=== PATIENT | male | born 1955 | race Caucasian/White ===

== ENCOUNTER 2023-10-19 18:45 | Inpatient (IN) | payer MEDICARE ==
--- NOTE | 2023-10-19 19:58 | ED ---
General Adult HPI - General Chief complaint: Neuro Symptoms/Deficit Stated complaint: Headache/High blood pressure Time Seen by Provider: 10/19/23 19:03 Source: patient Mode of arrival: ambulatory - History of Present Illness Initial comments: Dictation was produced using [employer] dictation software. please excuse any grammatical, word or spelling errors. Chief Complaint: 68-year-old male presents to the ER after leaving AGAINST MEDICAL ADVICE from [facility] for strokelike symptoms that occurred 3 days ago History of Present Illness: Patient 68-year-old male he was admitted left AGAINST MEDICAL ADVICE from [facility]. On Friday he had episode over the phone with his son where he had garbled and nonsensical speech. He was seen at the emergency department there diagnosed with CVA. He was admitted to the hospital and was there over the weekend. Patient also had elevated blood pressure. They were upset with the care they received there and decided to dale ve AGAINST MEDICAL ADVICE because they felt like there was no progression being made. Patient's symptoms had resolved. Son decided to bring patient here for further care. Patient denies any complaints at this time. History of present illness obtained from son and patient. Patient has multiple comorbidities including A-fib and is currently on Coumadin. The ROS documented in this emergency department record has been reviewed and confirmed by me. Those systems with pertinent positive or negative responses have been documented in the HPI. All other systems are other negative and/or noncontributory. - Related Data Home Medications Medication Instructions Recorded Confirmed Digoxin [Digitek] 125 mcg PO DAILY 10/19/23 10/19/23 Losartan Potassium 100 mg PO DAILY 10/19/23 10/19/23 Metoprolol Tartrate [Lopressor] 100 mg PO BID 10/19/23 10/19/23 Pantoprazole [Protonix] 40 mg PO BID 10/19/23 10/19/23 Simvastatin [Zocor] 60 mg PO DAILY 10/19/23 10/19/23 Warfarin [Coumadin] 5 mg PO SUTUTHSA@0900 10/19/23 10/19/23 Warfarin [Coumadin] 7.5 mg PO MOWEFR@0900 10/19/23 10/19/23 amLODIPine [Norvasc] 5 mg PO DIRECTED 10/19/23 10/19/23 glipiZIDE [glipiZIDE ER] 10 mg PO BID 10/19/23 10/19/23 metFORMIN HCL 1,000 mg PO HS 10/19/23 10/19/23 metFORMIN HCL 1,500 mg PO DAILY 10/19/23 10/19/23 Allergies Allergy/AdvReac Type Severity Reaction Status Date / Time No Known Allergies Allergy Verified 10/19/23 19:50 Review of Systems ROS Statement: Those systems with pertinent positive or pertinent negative responses have been documented in the HPI. ROS Other: All systems not noted in ROS Statement are negative. Past Medical History Past Medical History: Atrial Fibrillation, Diabetes Mellitus, Hypertension Additional Past Medical History / Comment(s): ablasion 20 yrs Past Surgical History: Joint Replacement Additional Past Surgical History / Comment(s): Hip replacement Smoking Status: Current every day smoker Past Alcohol Use History: Rare Past Drug Use History: None Reported General Exam - General Exam Comments Initial Comments: PHYSICAL EXAM: General Impression: Alert and oriented x3, not in acute distress HEENT: Normocephalic atraumatic, extra-ocular movements intact, pupils equal and reactive to light bilaterally, mucous membranes moist. Cardiovascular: Heart regular rate and rhythm Chest: Able to complete full sentences, no retractions, no tachypnea Abdomen: abdomen soft, non-tender, non-distended, no organomegaly Musculoskeletal: Pulses present and equal in all extremities, no peripheral edema Motor: no focal deficits noted Neurological: CN II-XII grossly intact, no focal motor or sensory deficits noted Skin: Intact with no visualized rashes Psych: Normal affect and mood Course Vital Signs 10/19/23 10/19/23 18:54 20:24 Temperature 98.6 F 98.6 F Pulse Rate 101 H 92 Respiratory 20 17 Rate Blood Pressure 193/114 178/129 O2 Sat by Pulse 98 97 Oximetry Medical Decision Making - Medical Decision Making Was pt. sent in by a medical professional or institution (, PA, CENTRIFUGAL MACHINE TENDER, urgent care, hospital, or penitentiary...) When possible be specific @ -Left AMA from outside hospital Did you speak to anyone other than the patient for history (EMS, parent, family, police, friend...)? What history was obtained from this source @ -Son as described above. Son brought patient here for second opinion Did you review nursing and triage notes (agree or disagree)? Why? @ -I reviewed and agree with nursing and triage notes Were old charts reviewed (outside hosp., previous admission, EMS record, old EKG, old radiological studies, urgent care reports/EKG's, penitentiary records)? Report findings @ -Documentation from [facility] was requested and received via fax. Admission HPI note was reviewed showing that patient came in for possible stroke. He had CT perfusion imaging results that were interpreted as likely artifactual. He did receive an MRI which did not show any acute processes. He was seen by cardiology who was consulted for blood pressure management. There was no consultation note by neurology. Differential Diagnosis (chest pain, altered mental status, abdominal pain women, abdominal pain men, vaginal bleeding, musculoskeletal, weakness, fever, dyspnea, syncope, headache, dizziness, GI bleed, back pain, seizure, CVA, palpatations, mental health)? @ -Not applicable EKG interpreted by me (3pts min.). @ -None done X-rays interpreted by me (1pt min.). @ -None done CT interpreted by me (1pt min.). @ -None done U/S interpreted by me (1pt. min.). @ -None done What testing was considered but not performed or refused? (CT, X-rays, U/S, labs)? Why? @ -None What meds were considered but not given or refused? Why? @ -None Did you discuss the management of the patient with other professionals (professionals i.e. , PA, CENTRIFUGAL MACHINE TENDER, lab, RT, psych nurse, social media executive, stretching press operator, teacher, medical scientific officer, porter sample case)? Give summary @ -Case discussed with hospitalist for admission Was smoking cessation discussed for >3mins.? @ -No Was critical care preformed (if so, how long)? @ -No Were there social determinants of health that impacted care today? How? (Homelessness, low income, unemployed, alcoholism, drug addiction, transportation, low edu. Level, literacy, decrease access to med. care, [place] [facility], rehab)? @ -No Was there de-escalation of care discussed even if they declined (Discuss DNR or withdrawal of care, Hospice)? DNR status @ -No What co-morbidities impacted this encounter? (DM, HTN, Smoking, COPD, CAD, Cancer, CVA, ARF, Chemo, Hep., AIDS, mental health diagnosis, sleep apnea, morbid obesity)? @ -None Was patient admitted / discharged? Hospital course, mention meds given and route, prescriptions, significant lab abnormalities, going to OR and other pertinent info. @ -68-year-old male left AMA from [facility]. He presented there for strokelike symptoms. Vital signs are stable. Patient well-appearing at the bedside states that he feels fine. Disposition options were discussed with patient and family. It is the request that patient be admitted with consultation to neurology. Fax documentation from [facility] was placed in patient's chart. Undiagnosed new problem with uncertain prognosis? @ -No Drug Therapy requiring intensive monitoring for toxicity (Heparin, Nitro, Insulin, Cardizem)? @ -No Were any procedures done? @ -No Diagnosis/symptom? Acute, or Chronic, or Acute on Chronic? Uncomplicated (without systemic symptoms) or Complicated (systemic symptoms)? @ -CVA Side effects of treatment? @ -No Exacerbation, Progression, or Severe Exacerbation? @ -No Poses a threat to life or bodily function? How? (Chest pain, USA, NV, pneumonia, PE, COPD, DKA, ARF, appy, cholecystitis, CVA, Diverticulitis, Homicidal, Suicidal, threat to staff... and all critical care pts) @ -yes - Lab Data Result diagrams: 10/19/23 20:05 10/19/23 20:05 Lab Results 10/19/23 10/19/23 Range/Units 20:05 20:05 WBC 12.9 H (3.8-10.6) k/uL RBC 4.84 (4.30-5.90) m/uL Hgb 16.5 (13.0-17.5) gm/dL Hct 43.6 (39.0-53.0) % MCV 90.1 (80.0-100.0) fL MCH 34.0 (25.0-35.0) pg MCHC 37.8 H (31.0-37.0) g/dL RDW 13.4 (11.5-15.5) % Plt Count 265 (150-450) k/uL MPV 8.8 Neutrophils % 67 % Lymphocytes % 20 % Monocytes % 8 % Eosinophils % 4 % Basophils % 1 % Neutrophils # 8.6 H (1.3-7.7) k/uL Lymphocytes # 2.5 (1.0-4.8) k/uL Monocytes # 1.0 (0-1.0) k/uL Eosinophils # 0.5 (0-0.7) k/uL Basophils # 0.1 (0-0.2) k/uL Sodium 139 (137-145) mmol/L Potassium 4.3 (3.5-5.1) mmol/L Chloride 110 H (98-107) mmol/L Carbon Dioxide 20 L (22-30) mmol/L Anion Gap 9 mmol/L BUN 16 (9-20) mg/dL Creatinine 0.87 (0.66-1.25) mg/dL Est GFR (CKD-EPI)AfAm >90 (>60 ml/min/1.73 sqM) Est GFR (CKD-EPI)NonAf >90 (>60 ml/min/1.73 sqM) Glucose 230 H (74-99) mg/dL Calcium 9.2 (8.4-10.2) mg/dL Disposition Clinical Impression: Stroke-like symptoms Disposition: ADMITTED IP TO THIS [facility] Condition: Fair Referrals: Eric Banda MD [Primary Care Provider] - 1-2 days Decision Time: 19:58
[2023-10-19 20:27] LABS: Basophils # (A) 0.1 k/uL (0-0.2); Basophils % (A) 1 %; Eosinophils # (A) 0.5 k/uL (0-0.7); Eosinophils % (A) 4 %; HCT 43.6 % (39.0-53.0); HGB 16.5 gm/dL (13.0-17.5); Lymphocytes # (A) 2.5 k/uL (1.0-4.8); Lymphocytes % (A) 20 %; MCHC 37.8 g/dL (31.0-37.0); MCV 90.1 fL (80.0-100.0); Mean Platelet Volume 8.8; Monocytes % (A) 8 %; Neutrophils # (A) 8.6 k/uL (1.3-7.7); Neutrophils % (A) 67 %; Platelet Count 265 k/uL (150-450); RBC 4.84 m/uL (4.30-5.90); RDW 13.4 % (11.5-15.5); WBC 12.9 k/uL (3.8-10.6)
[2023-10-19] MEDS ORDERED: NALOXONE 0.4 MG/ML 1 ML VIAL IV PRN (20:39)
[2023-10-19 20:43] LABS: African American GFR (CKD) >90 (>60 ml/min/1.73 sqM); Anion Gap 9 mmol/L; Blood Urea Nitrogen 16 mg/dL (9-20); Calcium 9.2 mg/dL (8.4-10.2); Carbon Dioxide 20 mmol/L (22-30); Chloride 110 mmol/L (98-107); Glucose 230 mg/dL (74-99); Non-African American GFR(CKD) >90 (>60 ml/min/1.73 sqM); Potassium 4.3 mmol/L (3.5-5.1); Sodium 139 mmol/L (137-145)
[2023-10-19] MEDS: SODIUM CHLORIDE 0.9% 1,000 ML IV SCH (21:32)
[2023-10-19 23:48] LABS: INR 1.6 (<1.2); Partial Thromboplastin Time 30.6 sec (22.0-30.0); Prothrombin Time 16.2 sec (10.0-12.5)
[2023-10-20 06:41] LABS: Glucose,Whole Blood 166 mg/dL (70-110)
[2023-10-20] MEDS ORDERED: DEXTROSE 50% SYRINGE 50 ML IVP PRN ×2 (06:45)
[2023-10-20] MEDS: INSULIN ASPART (NovoLOG) 100 UNIT/ML VIAL SQ SCH (06:53)
[2023-10-20] MEDS: PANTOPRAZOLE 40 MG TABLET PO SCH (06:53)
[2023-10-20 07:05] LABS: INR 1.4 (<1.2); Prothrombin Time 14.7 sec (10.0-12.5)
[2023-10-20] MEDS: amLODIPine 5 MG TAB PO SCH (09:05)
[2023-10-20] MEDS: DIGOXIN 125 MCG TAB PO SCH (09:05)
[2023-10-20] MEDS: LOSARTAN 50 MG TAB PO SCH (09:05)
[2023-10-20] MEDS: ATORVASTATIN 10 MG TAB PO SCH (09:05)
[2023-10-20] MEDS: METOPROLOL TARTRATE 50 MG TAB PO SCH (09:05)
[2023-10-20 11:20] LABS: Glucose,Whole Blood 307 mg/dL (70-110)
--- NOTE | 2023-10-20 12:35 | P.HPIM ---
History of Present Illness 68-year-old male came in after he had speech abnormality which lasted only for few minutes. Patient was at [facility] where he had a CT of the head and CT angio of the head and neck which were negative except for some occlusion of the vertebral artery. Patient blood sugars are high because he did not get his blood sugar medications which is metformin and glipizide which he takes at home. Patient's INR is 1.4 patient did not take his Coumadin for the last 2 days. Before that patient INR was supratherapeutic at 3.1 patient has valvular A-fib because of which patient is on Coumadin. Patient is in A-fib patient probably has chronic or persistent atrial fibrillation although rate controlled and neurology is recommending Lovenox to bridge. Patient denies any fever chills patient does not have any symptoms of stroke at this time no weakness no tingling numbness. REVIEW OF SYSTEMS: CONSTITUTIONAL: No fever, no malaise, no fatigue. HEENT: No recent visual problems or hearing problems. Denied any sore throat. CARDIOVASCULAR: No chest pain, orthopnea, PND, no palpitations, no syncope. PULMONARY: No shortness of breath, no cough, no hemoptysis. GASTROINTESTINAL: No diarrhea, no nausea, no vomiting, no abdominal pain. NEUROLOGICAL: No headaches, no weakness, no numbness. HEMATOLOGICAL: Denies any bleeding or petechiae. GENITOURINARY: Denies any burning micturition, frequency, or urgency. MUSCULOSKELETAL/RHEUMATOLOGICAL: Denies any joint pain, swelling, or any muscle pain. ENDOCRINE: Denies any polyuria or polydipsia. The rest of the 14-point review of systems is negative. PHYSICAL EXAMINATION: GENERAL: The patient is alert and oriented x3, not in any acute distress. Well developed, well nourished. HEENT: Pupils are round and equally reacting to light. EOMI. No scleral icterus. No conjunctival pallor. Normocephalic, atraumatic. No pharyngeal erythema. No thyromegaly. CARDIOVASCULAR: S1 and S2 present. No murmurs, rubs, or gallops. PULMONARY: Chest is clear to auscultation, no wheezing or crackles. ABDOMEN: Soft, nontender, nondistended, normoactive bowel sounds. No palpable organomegaly. MUSCULOSKELETAL: No joint swelling or deformity. EXTREMITIES: No cyanosis, clubbing, or pedal edema. NEUROLOGICAL: Gross neurological examination did not reveal any focal deficits. SKIN: No rashes. Assessment and plan -Possible transient ischemic attack: Patient will undergo echocardiogram to rule out any ventricular thrombus patient will be resumed on Coumadin with INR checks tomorrow patient will be bridged as recommended by neurology. Will obtain a lipid panel hemoglobin A1c echocardiogram neurology is evaluating the patient. Neurology is also recommending aspirin 81 mg -Hypertension: Patient blood pressure slightly high now we will just monitor before we increase the dose of antihypertensive medication patient is on amlodipine and losartan which were restarted -Hyperlipidemia: Lipid panel will be obtained patient is not on statin at home -Valvular A-fib for which patient is on Coumadin which will be resumed and patient is on beta-henrique which will be resumed, patient will be bridged with Lovenox -Nicotine use: Counseling was provided DVT prophylaxis: Patient is on anticoagulation as mentioned above Past Medical History Past Medical History: Atrial Fibrillation, Diabetes Mellitus, Hypertension Additional Past Medical History / Comment(s): ablasion 20 yrs History of Any Multi-Drug Resistant Organisms: None Reported Past Surgical History: Joint Replacement Additional Past Surgical History / Comment(s): Hip replacement Smoking Status: Current every day smoker Past Alcohol Use History: Rare Past Drug Use History: None Reported Medications and Allergies Home Medications Medication Instructions Recorded Confirmed Type Digoxin [Digitek] 125 mcg PO DAILY 10/19/23 10/19/23 History Losartan Potassium 100 mg PO DAILY 10/19/23 10/19/23 History Metoprolol Tartrate [Lopressor] 100 mg PO BID 10/19/23 10/19/23 History Pantoprazole [Protonix] 40 mg PO BID 10/19/23 10/19/23 History Simvastatin [Zocor] 60 mg PO DAILY 10/19/23 10/19/23 History Warfarin [Coumadin] 5 mg PO SUTUTHSA@0900 10/19/23 10/19/23 History Warfarin [Coumadin] 7.5 mg PO MOWEFR@0900 10/19/23 10/19/23 History amLODIPine [Norvasc] 5 mg PO DIRECTED 10/19/23 10/19/23 History glipiZIDE [glipiZIDE ER] 10 mg PO BID 10/19/23 10/19/23 History metFORMIN HCL 1,000 mg PO HS 10/19/23 10/19/23 History metFORMIN HCL 1,500 mg PO DAILY 10/19/23 10/19/23 History Allergies Allergy/AdvReac Type Severity Reaction Status Date / Time No Known Allergies Allergy Verified 10/19/23 19:50 Physical Exam Vitals: Vital Signs Temp Pulse Pulse Resp BP BP Pulse Ox 10/20/23 08:00 98 F 77 16 191/91 100 10/20/23 04:00 74 18 140/90 97 10/20/23 02:00 70 10/19/23 21:12 98.2 F 84 18 190/120 98 10/19/23 20:24 98.6 F 92 17 178/129 97 10/19/23 18:54 98.6 F 101 H 20 193/114 98 Intake and Output 10/19/23 10/20/23 10/20/23 22:59 06:59 14:59 Intake Total 240 Balance 240 Intake: Oral 240 Other: # Voids 2 Weight 113.398 kg Results CBC & Chem 7: 10/19/23 20:05 10/19/23 20:05 Labs: Abnormal Lab Results - Last 24 Hours (Table) 10/19/23 10/19/23 10/19/23 Range/Units 20:05 20:05 23:28 WBC 12.9 H (3.8-10.6) k/uL MCHC 37.8 H (31.0-37.0) g/dL Neutrophils # 8.6 H (1.3-7.7) k/uL PT 16.2 H (10.0-12.5) sec INR 1.6 H (<1.2) APTT 30.6 H (22.0-30.0) sec Chloride 110 H (98-107) mmol/L Carbon Dioxide 20 L (22-30) mmol/L Glucose 230 H (74-99) mg/dL POC Glucose (mg/dL) (70-110) mg/dL 10/20/23 10/20/23 10/20/23 Range/Units 06:37 06:38 11:16 WBC (3.8-10.6) k/uL MCHC (31.0-37.0) g/dL Neutrophils # (1.3-7.7) k/uL PT 14.7 H (10.0-12.5) sec INR 1.4 H (<1.2) APTT (22.0-30.0) sec Chloride (98-107) mmol/L Carbon Dioxide (22-30) mmol/L Glucose (74-99) mg/dL POC Glucose (mg/dL) 166 H 307 H (70-110) mg/dL Thrombosis Risk Factor Assmnt - Choose All That Apply Each Factor Represents 1 point: Swollen legs (current) Other Risk Factors: Yes Each Risk Factor Represents 2 Points: Age 61-74 years Other congenital or acquired thrombophilia - If yes, enter type in comment: No Thrombosis Risk Factor Assessment Total Risk Factor Score: 3 Thrombosis Risk Factor Assessment Level: Moderate Risk
[2023-10-20] MEDS: metFORMIN 500 MG TAB PO SCH ×2 (12:36→20:55)
[2023-10-20] MEDS: ASPIRIN 81 MG PO SCH (12:37)
--- NOTE | 2023-10-20 14:05 | US ---
EXAMINATION TYPE: US carotid duplex BILAT DATE OF EXAM: 10/20/2023 COMPARISON: NONE CLINICAL INDICATION: Male, 68 years old with history of TIA; TIA TECHNIQUE: Carotid duplex ultrasound examination. Indirect Doppler criteria was utilized. FINDINGS: EXAM MEASUREMENTS: RIGHT: Peak Systolic Velocity (PSV) cm/sec ----- Right CCA: 66.3 ----- Right ICA: 69.5 ----- Right ECA: 72.8 ICA/CCA ratio: 1.04 RIGHT: End Diastole cm/sec ----- Right CCA: 18.8 ----- Right ICA: 17.5 ----- Right ECA: 11.7 LEFT: Peak Systolic Velocity (PSV) cm/sec ----- Left CCA: 82.5 ----- Left ICA: 72.1 ----- Left ECA: 63 ICA/CCA ratio: 0.87 LEFT: End Diastole cm/sec ----- Left CCA: 10.4 ----- Left ICA: 20.1 ----- Left ECA: 3.25 VERTEBRALS (direction of flow): Right Vertebral: Antegrade Left Vertebral: Antegrade Rhythm: Normal OUTBOUND SALES CONSULTANT NOTES: Mild atherosclerotic changes No significant stenosis seen IMPRESSION: Mild atherosclerotic changes with no significant hemodynamic stenosis. Criteria for Assigning % of Stenosis / Diameter reduction (Estimation based on the indirect measurements of the internal carotid artery velocities (ICA PSV). 1. Normal (no stenosis)=ICA PSV < 125 cm/s: ratio < 2.0: ICA EDV<40 cm/s. 2. Less than 50% stenosis=ICA PSV < 125 cm/s: ratio < 2.0: ICA EDV<40 cm/s. 3. 50 to 69% stenosis=ICA PSV of 125 to 230 cm/s: ration 2.0 ? 4.0: ICA EDV 40-100 cm/s. 4. Greater than 70% stenosis to near occlusion= ICA PSV > 230 cm/s: ratio > 4.0: ICA EDV > 100 cm/s. 5. Near occlusion= ICA PSV velocities may be low or undetectable: variable ratio and ICA EDV. 6. Total occlusion=unable to detect flow.
[2023-10-20 16:23] LABS: Glucose,Whole Blood 274 mg/dL (70-110)
[2023-10-20] MEDS: ENOXAPARIN 100 MG/ML SYRINGE SQ SCH (16:30)
[2023-10-20] MEDS: glipiZIDE 10 MG TAB PO SCH (16:30)
[2023-10-20] MEDS: WARFARIN 7.5 MG TAB PO ONE (16:30)
[2023-10-20 20:20] LABS: Glucose,Whole Blood 315 mg/dL (70-110)
[2023-10-20] MEDS: SENNOSIDES-DOCUSATE SODIUM 1 EACH TAB PO PRN (20:57)
[2023-10-21 06:07] LABS: Glucose,Whole Blood 150 mg/dL (70-110)
[2023-10-21 08:25] VITALS: RESP 16; TEMP 97.6
--- NOTE | 2023-10-21 09:08 | P.CNNES ---
History of Present Illness Consult date: 10/20/23 Requesting physician: Mickey Morales Reason for Consult: stroke symptoms History of Present Illness: Patient is a 68-year-old right-handed male with history of atrial fibrillation, came to the hospital yesterday (10/19/2023) at 6:45 PM after he signed out AGAINST MEDICAL ADVICE from another hospital for stroke/TIA. Patient has presented initially to [facility] ER on 10/17/2023 when he woke up at 8 PM and the family noticed he was slurring his words and confused. Patient also was complaining of some dizziness, blurred vision and a severe headache. He was trying to tell about medication Advil/Tylenol, but only "applesauce" kept coming out from his mouth. He was talking random stuff. He also complained of sharp pain over the right frontal region, occurs once in a while lasting for a few seconds. When he was trying to swallow, felt like it was going to the wrong pipe. He states that just that day, his physician has told him to stop taking Coumadin, as his INR was high. Symptoms started before he stopped taking his Coumadin. His symptoms significantly improved and then resolved by around 11:30 AM to 12 noon that day. Overall symptoms lasted for about 4 hours altogether and then resolved. He was being worked up at another facility, but he signed out AGAINST MEDICAL ADVICE, not satisfied with the care. He went home, took a shower and came to this hospital. Patient's grandson was present at this time, who mentioned that about 4 to 5 months ago, patient had another episode, that lasted for an hour. He forgot his name, where he was going. Vital signs on arrival blood pressure 193/114, which came up to 178/129 and then 190/120. Pulse rate 101, temperature 98.6. Blood test shows WBC 12.9 normal hemoglobin, platelets. INR 1.6. Basic metabolic panel is normal. Calcium is normal. Glucose 230. Patient is currently on Coumadin, metformin, glipizide, amlodipine, simvastatin 60 mg, Protonix, metoprolol, losartan and digoxin. Patient not taking any antiplatelet medication. His INR is subtherapeutic 1.4. Patient has history of smoking 1 pack/day for 50 years, currently smokes. Patient has type 2 diabetes for last 5 years. Also has hypertension, hyperlipidemia. He drinks alcohol very occasionally. No marijuana or drug use. Review of records: Patient presented to the ER on 10/17/2023 when he woke up at 8 PM and the family noticed he was slurring his words and confused. Patient did not take his Coumadin that morning, because his physician told him to stop taking because of his INR was 3.1. He was complaining of headache. Patient has history of atrial fibrillation. Patient's CBC with WBC 10.21, hemoglobin 15. Platelets 257. INR 3.3. CK 93. Troponin 23 ng/L which is high. Calcium 8.3. UA negative. Blood alcohol level negative. CT head showed no evidence of acute intracranial hemorrhage or tendon to renal infarction. Small chronic infarct left frontal lobe white matter. Mild chronic small vessel ischemic disease. CT head with perfusion code stroke protocol showed a small area of critical hypoperfusion in the left posterior fossa is favored to be artifactual versus due to acute ischemic change. Otherwise negative CT perfusion. CTA of head and neck showed moderate to severe stenosis in the right vertebral artery region due to atherosclerotic calcification. It was reported the patient is on aspirin and statins. Patient's blood pressure was 170/100. Hepatic panel was normal. MRI of the brain without contrast 10/18/2023 revealed no acute abnormalities. 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 Multiple small, chronic lacunar infarcts. Patient was seen by analytical chemist at [facility]. Neurology was consulted, but patient signed out AGAINST MEDICAL ADVICE before he was seen by the neurologist. Review of Systems Constitutional: Denies chills, Denies fever Eyes: denies blurred vision, denies diplopia, denies pain Ears: bilateral: decreased hearing, deny: ear discharge Ears, nose, mouth and throat: Reports headache, Denies sore throat, Denies vertigo Cardiovascular: Reports dyspnea on exertion, Denies chest pain, Denies lightheadedness, Denies shortness of breath Respiratory: Denies cough, Denies excessive sputum Gastrointestinal: Denies abdominal pain, Denies diarrhea, Denies nausea, Denies vomiting Genitourinary: Denies incontinence, Denies urinary frequency Musculoskeletal: Reports low back pain, Reports neck pain, Denies myalgias Integumentary: Denies pruritus, Denies rash Neurological: Reports as per HPI Psychiatric: Reports depression, Denies anxiety Hematologic/Lymphatic: Denies easy bleeding, Denies easy bruising Past Medical History Past Medical History: Atrial Fibrillation, Diabetes Mellitus, Hypertension Additional Past Medical History / Comment(s): ablasion 20 yrs History of Any Multi-Drug Resistant Organisms: None Reported Past Surgical History: Joint Replacement Additional Past Surgical History / Comment(s): Hip replacement Smoking Status: Current every day smoker Past Alcohol Use History: Rare Past Drug Use History: None Reported Medications and Allergies Home Medications Medication Instructions Recorded Confirmed Type Digoxin [Digitek] 125 mcg PO DAILY 10/19/23 10/19/23 History Losartan Potassium 100 mg PO DAILY 10/19/23 10/19/23 History Metoprolol Tartrate [Lopressor] 100 mg PO BID 10/19/23 10/19/23 History Pantoprazole [Protonix] 40 mg PO BID 10/19/23 10/19/23 History Simvastatin [Zocor] 60 mg PO DAILY 10/19/23 10/19/23 History Warfarin [Coumadin] 5 mg PO SUTUTHSA@0900 10/19/23 10/19/23 History Warfarin [Coumadin] 7.5 mg PO MOWEFR@0900 10/19/23 10/19/23 History amLODIPine [Norvasc] 5 mg PO DIRECTED 10/19/23 10/19/23 History glipiZIDE [glipiZIDE ER] 10 mg PO BID 10/19/23 10/19/23 History metFORMIN HCL 1,000 mg PO HS 10/19/23 10/19/23 History metFORMIN HCL 1,500 mg PO DAILY 10/19/23 10/19/23 History Allergies Allergy/AdvReac Type Severity Reaction Status Date / Time No Known Allergies Allergy Verified 10/19/23 19:50 Physical Examination - Vital Signs Vital Signs: Vital Signs Temp Pulse Pulse Resp BP BP Pulse Ox 10/20/23 04:00 74 18 140/90 97 10/20/23 02:00 70 10/19/23 21:12 98.2 F 84 18 190/120 98 10/19/23 20:24 98.6 F 92 17 178/129 97 10/19/23 18:54 98.6 F 101 H 20 193/114 98 Intake and Output 10/19/23 10/20/23 10/20/23 22:59 06:59 14:59 Intake Total 240 Balance 240 Intake: Oral 240 Other: # Voids 2 Weight 113.398 kg Patient is an elderly male, in no acute distress. Patient is alert awake oriented to time place and person. Speech and language functions are normal. Patient can name and repeat very well. No aphasia or dysarthria. Attention, concentration and fund of knowledge is adequate. On cranial nerve examination, pupils are equal, round and reacting to light, visual calderon are full on confrontation, with no neglect on double simultaneous stimulation. Extraocular muscles are intact with no nystagmus. Face is symmetric, tongue protrudes to the midline. Palatal elevation and sensation normal, hearing and shoulder shrug normal, facial sensation normal. On muscle strength testing, there is no pronator drift and the strength is normal in arms and legs distally and proximally. Deep tendon reflexes are symmetric but very hypoactive all over and plantars are downgoing. Sensory to touch is equal with no neglect on double simultaneous stimulation. Cerebellar function showed no ataxia for [id number] testing. No dysdiadochokinesia. No ataxia for ifns-wi-ohma testing on either side. Tone and bulk of muscles normal. Gait deferred.. On general examination, there is no carotid bruit or murmur, S1-S2 audible. Chest is clear on consultation. Abdomen is soft nontender. No organomegaly, bowel sounds present. Peripheral pulses are present. No peripheral edema. Results - Laboratory Findings CBC and BMP: 10/19/23 20:05 10/19/23 20:05 Abnormal Lab Findings: Abnormal Labs 10/19/23 10/19/23 10/19/23 20:05 20:05 23:28 WBC 12.9 H MCHC 37.8 H Neutrophils # 8.6 H PT 16.2 H INR 1.6 H APTT 30.6 H Chloride 110 H Carbon Dioxide 20 L Glucose 230 H POC Glucose (mg/dL) 10/20/23 10/20/23 06:37 06:38 WBC MCHC Neutrophils # PT 14.7 H INR 1.4 H APTT Chloride Carbon Dioxide Glucose POC Glucose (mg/dL) 166 H Assessment and Plan Assessment: * Probable TIA manifesting with transient slurred speech, aphasia, mental confusion. Symptoms lasted for about 4 hours and resolved. Patient was on Coumadin with therapeutic INR when symptoms happened. Patient does have multiple vascular risk factors as mentioned below. * Atrial fibrillation, on Coumadin. Although his INR was therapeutic at the time of TIA, but at present patient has subtherapeutic INR * Hypertension, uncontrolled. * Diabetes * Dyslipidemia * Lumbar radiculopathy * Obesity * Tobacco use, 50 pack years Plan: Patient already had MRI of the brain performed at outside facility, which showed no acute ischemic stroke. No need to repeat at this time. At present patient's NIH stroke scale is 0. No focal deficits. Patient has multiple stroke risk factors as mentioned above. Patient need to aggressive control all stroke risk factors and he was counseled about it. Check 2-D echo with bubble study to rule out PFO CTA of head and neck performed outside facility showed moderate to severe stenosis in the right vertebral artery region due to atherosclerotic calcification. Carotid Doppler, rule out ICA stenosis Fasting a.m. lipid panel Hemoglobin A1c Optimize control of blood pressure to normotensive level. Discussed with primary physician. Patient has atherosclerotic cerebrovascular disease. Antiplatelet medication works better for vasculopathy, therefore recommend starting aspirin 81 mg daily. Resume Coumadin. Patient's INR is subtherapeutic 1.4. Recommend bridging with Lovenox or IV heparin, until INR therapeutic. Neuro checks every 4 hours. Telemetry monitoring rule out any arrhythmia Recommend complete tobacco cessation. DVT prophylaxis: Resume Coumadin. Neurology will continue to follow. Thank you for the consult. Time with Patient: Greater than 30
[2023-10-21 10:23] LABS: INR 1.4 (<1.2); Prothrombin Time 14.4 sec (10.0-12.5)
[2023-10-21 11:31] LABS: Glucose,Whole Blood 204 mg/dL (70-110)
--- NOTE | 2023-10-21 11:45 | CA ---
Transthoracic Echo Report Name: Tresa Lora Age: 68 Gender: M : 1955 Exam Date: 10/20/2023 14:46 Exam Location: [facility] Ht (in): 73 Wt (lb): 250 Ordering Physician: Ronaldo Bravo MD Attending/Referring Phys: Piano Mechanic Apprentice Ileana Lujan RDCS Procedure CPT: Indications: tia Cardiac Hx: Technical Quality: Good Contrast 1: Agitated Saline Total Dose (mL): 9 Contrast 2: Total Dose (mL): MEASUREMENTS (Male / Female) Normal Values 2D ECHO LV Diastolic Diameter PLAX 5.2 cm 4.2 - 5.9 / 3.9 - 5.3 cm LV Systolic Diameter PLAX 3.4 cm IVS Diastolic Thickness 1.3 cm 0.6 - 1.0 / 0.6 - 0.9 cm LVPW Diastolic Thickness 1.2 cm 0.6 - 1.0 / 0.6 - 0.9 cm LV Relative Wall Thickness 0.5 RV Internal Dim ED PLAX 3.0 cm LA Systolic Diameter LX 5.2 cm 3.0 - 4.0 / 2.7 - 3.8 cm LV Diastolic Volume MOD BP 94.5 cm??? 67 - 155 / 56 - 104 cm??? LV Systolic Volume MOD BP 43.9 cm??? - / 19 - 49 cm??? LV Ejection Fraction MOD BP 53.5 % >= 55 % LV Cardiac Index MOD BP 1569.5 cm???/min???m??? LV Diastolic Volume MOD 4C 96.7 cm??? LV Systolic Volume MOD 4C 47.5 cm??? LV Ejection Fraction MOD 4C 50.8 % LV Cardiac Index MOD 4C 1525.5 cm???/min???m??? LV Diastolic Length 4C 6.9 cm LV Systolic Length 4C 5.9 cm LV Diastolic Volume MOD 2C 89.6 cm??? LV Systolic Volume MOD 2C 39.6 cm??? LV Ejection Fraction MOD 2C 55.8 % LV Cardiac Index MOD 2C 1552.5 cm???/min???m??? LV Diastolic Length 2C 7.2 cm LV Systolic Length 2C 5.6 cm LA Volume 114.3 cm??? - 58 / 22 - 52 cm??? LA Volume Index 46.7 cm???/m??? 16 - 28 cm???/m??? M-MODE Aortic Root Diameter MM 3.3 cm DOPPLER AV Peak Velocity 156.7 cm/s AV Peak Gradient 9.8 mmHg MV Area PHT 3.3 cm??? MV Deceleration Time 200.3 ms TR Peak Velocity 252.3 cm/s TR Peak Gradient 25.5 mmHg Right Ventricular Systolic Press 29.4 mmHg FINDINGS Left Ventricle Left ventricular ejection fraction is estimated at 50-55 %. Left ventricular cavity size normal. Mild concentric LVH. No obvious wall motion abnormality. Right Ventricle Normal right ventricular size. Right ventricular systolic pressure within normal limits. Right Atrium Normal right atrial size. Left Atrium Moderately dilated dilatation with elevated LV pressures. Mitral Valve Structurally normal mitral valve. Mild mitral regurgitation. Aortic Valve Trileaflet aortic valve. No aortic valve stenosis or regurgitation. Tricuspid Valve Structurally normal tricuspid valve. Mild tricuspid regurgitation. Pulmonic Valve Structurally normal pulmonic valve. Trace pulmonic regurgitation. Pericardium No pericardial effusion. Aorta Normal size aortic root and proximal ascending aorta. CONCLUSIONS Left ventricular ejection fraction is estimated at 50-55 %. Mild concentric LVH. No obvious wall motion abnormality. Moderately dilated dilatation with elevated LV pressures. Mild MR Patient is in A. fib during the study Previewed by: Dr Geoff Pastrana (Electronically Signed) Final Date: 21 October 2023 11:44
[2023-10-21] MEDS: hydrALAZINE HCL 25 MG TAB PO STA (12:35)
[2023-10-21 13:07] VITALS: PULSE 71
[2023-10-21 13:42] VITALS: BP 159/89
[2023-10-21 17:31] LABS: Chol/HDL Ratio 4.53 Ratio; LDL Cholesterol,Calculated 57.2 mg/dL (0.0-131.0)
[2023-10-21] MEDS ORDERED: WARFARIN 7.5 MG TAB PO ONE (18:00)
[2023-10-21] MEDS ORDERED: hydrALAZINE HCL 25 MG TAB PO SCH (21:00)
--- NOTE | 2023-10-22 21:11 | P.DS ---
Providers Date of admission: 10/19/23 20:43 Attending physician: Dez Powell Consults: 10/19/23 19:31 Consult Physician Routine Consulting Provider: Prashanth Butler Consult Reason/Comments: stroke symptoms Do you want consulting provider notified?: Yes Primary care physician: Eric Banda Hospital Course: Final Diagnosis -TIA manifesting with transient slurred speech, aphasia, mental confusion. Symptoms lasted for about 4 hours and resolved. -Chronic Atrial fibrillation, on Coumadin. Although his INR was therapeutic at the time of TIA, he is currently subtherapeutic with lovenox bridge in place. -Moderate to severe stenosis in the right vertebral artery region due to atherosclerotic calcification -Hypertension, uncontrolled. -Diabetes Mellitus type 2, hemoglobin A1C 9.0. -Dyslipidemia -Lumbar radiculopathy -Obesity -Tobacco use, 50 pack years Full Code Discharge Disposition Patient is stable for discharge home. Patient has multiple stroke risk factors including smoking history, hypertension, diabetes. Patient need to aggressive control all stroke risk factors and he was counseled about it. Neurology had recommended to start aspirin 81 mg daily in addition to the warfarin for the atherosclerotic vascular disease. Patients INR remains subtherapuetic and will recommend to continue with lovenox bridging twice daily injections and resume warfarin. Patient to repeat INR level in 5 days. Patient is continued on high dose statin therapy. He is discharged on oral hydralazine three times a day and recommended to monitor blood pressure at home and keep log for follow up with his family doctor. He needs improved blood pressure control. Hospital Course Patient is a 68-year-old right-handed male with history of atrial fibrillation, came to the hospital on 10/19/23 after he left AGAINST MEDICAL ADVICE from another hospital for stroke/TIA. Patient has presented initially to [facility] ER on 10/17/2023 when he woke up at 8 PM and the family noticed he was slurring his words and confused. Patient also was complaining of some dizziness, blurred vision and a severe headache. He was trying to tell about medication Advil/Tylenol, but only "applesauce" kept coming out from his mouth. He was talking random stuff. He also complained of sharp pain over the right frontal region, occurs once in a while lasting for a few seconds. When he was trying to swallow, felt like it was going to the wrong pipe. He states that just that day, his physician has told him to stop taking Coumadin, as his INR was high. Symptoms started before he stopped taking his Coumadin. His symptoms significantly improved and then resolved by around 11:30 AM to 12 noon that day. Overall symptoms lasted for about 4 hours altogether and then resolved. He was being worked up at another facility, but he signed out AGAINST MEDICAL ADVICE, not satisfied with the care. He went home, took a shower and came to this hospital. Patient's grandson was present at this time, who mentioned that about 4 to 5 months ago, patient had another episode, that lasted for an hour. He forgot his name, where he was going. He comes in found to have hypertension at 193/114. INR was 1.6. At outside facility; CT head showed no evidence of acute intracranial hemorrhage or tendon to renal infarction. Small chronic infarct left frontal lobe white matter. Mild chronic small vessel ischemic disease. CT head with perfusion code stroke protocol showed a small area of critical hypoperfusion in the left posterior fossa is favored to be artifactual versus due to acute ischemic change. Otherwise negative CT perfusion. CTA of head and neck showed . moderate to severe stenosis in the right vertebral artery region due to atherosclerotic calcification. At this facility patient had echocardiogram and bubble study done which reveals left ventricular EF 50-55%, mild concentric LVH, moderately dilated dilatation with elevated LV pressures. Mild MR. Patient remains in atrial fibrillation chronically. Carotid doppler reveals mild atherosclerotic changes with no significant hemodynamic stenosis. Lipid panel done revealing triglyceride level of 240, cholesterol 135, LDL 57.2 and HDL 29.80. Hemoglobin A1C is 9.0. INR 1.4. Patients neurological symptoms have improved. He is not complaining of any chest pain or shortness of breath. He is alert x 3. Family at the bedside state his mentation has normalized. Lungs are clear, S1 S2 auscultated, in atrial fibrillation. Alert x 3. Cleared for discharge with the above mentioned recommendations. Please see medication reconciliation for a list of current medications. Thank you for allowing us to participate in the care of this patient. The impression and plan of care has been dictated by Skyla Venegas, Nurse Practitioner as directed. Dr. Jose De Jesus MD I have performed a history and physical examination and medical decision making of this patient, discussed the same with the dictator, and agree with the dictators assessment and plan as written, documented as a scribe. Based on total visit time, I have performed more than 50% of this visit. Patient Condition at Discharge: Fair Plan - Discharge Summary Discharge Rx Participant: No New Discharge Prescriptions: New Enoxaparin [Lovenox] 100 mg SQ Q12HR 4 Days #8 each Aspirin 81 mg PO DAILY #30 tab hydrALAZINE HCL [Apresoline] 25 mg PO TID #90 tab Continue Warfarin [Coumadin] 5 mg PO SUTUTHSA@0900 Warfarin [Coumadin] 7.5 mg PO MOWEFR@0900 glipiZIDE [glipiZIDE ER] 10 mg PO BID Digoxin [Digitek] 125 mcg PO DAILY metFORMIN HCL 1,500 mg PO DAILY Pantoprazole [Protonix] 40 mg PO BID Metoprolol Tartrate [Lopressor] 100 mg PO BID Losartan Potassium 100 mg PO DAILY amLODIPine [Norvasc] 5 mg PO DIRECTED Simvastatin [Zocor] 60 mg PO DAILY metFORMIN HCL 1,000 mg PO HS Discharge Medication List Digoxin [Digitek] 125 mcg PO DAILY 10/19/23 [History] Losartan Potassium 100 mg PO DAILY 10/19/23 [History] Metoprolol Tartrate [Lopressor] 100 mg PO BID 10/19/23 [History] Pantoprazole [Protonix] 40 mg PO BID 10/19/23 [History] Simvastatin [Zocor] 60 mg PO DAILY 10/19/23 [History] Warfarin [Coumadin] 5 mg PO SUTUTHSA@0900 10/19/23 [History] Warfarin [Coumadin] 7.5 mg PO MOWEFR@0900 10/19/23 [History] amLODIPine [Norvasc] 5 mg PO DIRECTED 10/19/23 [History] glipiZIDE [glipiZIDE ER] 10 mg PO BID 10/19/23 [History] metFORMIN HCL 1,000 mg PO HS 10/19/23 [History] metFORMIN HCL 1,500 mg PO DAILY 10/19/23 [History] Aspirin 81 mg PO DAILY #30 tab 10/21/23 [Rx] Enoxaparin [Lovenox] 100 mg SQ Q12HR 4 Days #8 each 10/21/23 [Rx] hydrALAZINE HCL [Apresoline] 25 mg PO TID #90 tab 03/19/24 [Rx] Follow up Appointment(s)/Referral(s): Eric Banda MD [Primary Care Provider] - 1-2 days Daniel Glass MD [Medical Doctor] - 1 Week (Neurologist ) Ambulatory/Diagnostic Orders: Basic Metabolic Panel [LAB.AMB] Location: None Selected Complete Blood Count w/diff [LAB.AMB] Time Frame: 3 Days, Location: None Selected Patient Instructions/Handouts: Ischemic Stroke (DC) Activity/Diet/Wound Care/Special Instructions: Recommend to see PCP in 1 to 2 days. Follow up with your coin teller in 1 week. Continue on lovenox injections twice a day as a therapeutic bridge until your INR is in target range of 2.5 to 3.5. Repeat INR level in 5 days Establish care and follow up with a neurologist on discharge. Discharge Disposition: HOME SELF-CARE
== END 2023-10-21 15:50 | disposition home or self-care (01) | DRG 69 ==
LOC: EC 18:45 → 3SCARD 20:43
PROVIDERS: ADMIT Hospitalist; ATTEND Hospitalist
DX: G45.9 Transient cerebral ischemic attack, unspecified (principal); I48.19 Other persistent atrial fibrillation; R47.01 Aphasia; I67.2 Cerebral atherosclerosis; E11.9 Type 2 diabetes mellitus without complications; I65.01 Occlusion and stenosis of right vertebral artery; I10 Essential (primary) hypertension; E66.9 Obesity, unspecified; Z68.33 Body mass index [BMI] 33.0-33.9, adult; Z28.310 Unvaccinated for COVID-19; E78.5 Hyperlipidemia, unspecified; M54.16 Radiculopathy, lumbar region; R90.82 White matter disease, unspecified; R79.1 Abnormal coagulation profile; H53.8 Other visual disturbances; F17.210 Nicotine dependence, cigarettes, uncomplicated; Z71.6 Tobacco abuse counseling; Z79.01 Long term (current) use of anticoagulants; Z79.84 Long term (current) use of oral hypoglycemic drugs; Z79.899 Other long term (current) drug therapy; Z96.649 Presence of unspecified artificial hip joint
CPT/HCPCS: 36415; 80048; 80061; 83036; 85025; 85610; 85730; 93306; 93880; 99285